=== PATIENT | female | born 1995 | race Two or more races ===

== ENCOUNTER 2017-06-23 13:22 | Outpatient (CLI) | payer OTHER | END 2017-06-23 14:10 | disposition home or self-care (01) | LOC: SONOGRAMA 13:22 | DX: R10.31 Right lower quadrant pain (principal) ==

== ENCOUNTER 2018-06-23 14:22 | Outpatient (CLI) | payer OTHER | END 2018-06-23 14:37 | disposition home or self-care (01) | LOC: SONOGRAMA 14:22 | DX: R42 Dizziness and giddiness (principal); R55 Syncope and collapse; N39.0 Urinary tract infection, site not specified ==

== ENCOUNTER 2018-06-27 08:14 | Outpatient (CLI) | payer OTHER | END 2018-06-27 08:24 | disposition home or self-care (01) | LOC: SONOGRAMA 08:14 | DX: R59.0 Localized enlarged lymph nodes (principal) ==

== ENCOUNTER 2018-07-01 16:36 | Outpatient (CLI) | payer OTHER | END 2018-07-01 19:00 | disposition home or self-care (01) | LOC: TOM 16:36 | DX: R59.0 Localized enlarged lymph nodes (principal) ==

== ENCOUNTER → 2020-05-21 | Outpatient (CLI) | payer OTHER | END | disposition home or self-care (01) | LOC: PRENATAL 13:00 | PROVIDERS: ATTEND Obstetrics & Gynecology Maternal & Fetal Medicine | DX: O35.3XX1 Maternal care for (suspected) damage to fetus from viral disease in mother, fetus 1 (principal); O35.0XX1 Maternal care for (suspected) central nervous system malformation in fetus, fetus 1; O98.512 Other viral diseases complicating pregnancy, second trimester; Z36.89 Encounter for other specified antenatal screening; Z3A.22 22 weeks gestation of pregnancy ==

== ENCOUNTER 2020-07-07 16:37 | Outpatient (CLI) | payer OTHER ==
[2020-07-07] MEDS ORDERED: BIOTIN1 M1 PO (16:44)
[2020-07-07] MEDS ORDERED: MAGNESIUM30 MG PO (16:44)
[2020-07-07] MEDS ORDERED: PRENATAL TABLE1 EAC1 PO (16:44)
[2020-07-07] MEDS ORDERED: PROBIOTIC1 EAC1 PO (16:45)
== END 2020-07-07 19:48 | disposition left against medical advice (07) ==
LOC: OBS/DEL 16:37
PROVIDERS: ATTEND Obstetrics & Gynecology
DX: O26.892 Other specified pregnancy related conditions, second trimester (principal); R10.2 Pelvic and perineal pain; Z20.828 Contact with and (suspected) exposure to other viral communicable diseases

== ENCOUNTER → 2022-09-20 | Emergency (ER) | payer OTHER ==
[~2022-09-20] MED LIST: BIOTIN1 M1 PO; MAGNESIUM30 MG PO; PRENATAL TABLE1 EAC1 PO; PROBIOTIC1 EAC1 PO
== END | disposition home or self-care (01) ==
LOC: ER 15:29
DX: Z53.21 Procedure and treatment not carried out due to patient leaving prior to being seen by health care provider (principal)

== ENCOUNTER → 2025-03-13 09:48 | Outpatient (CLI) | payer OTHER | END | disposition home or self-care (01) | LOC: PRENATAL 09:48 | PROVIDERS: ATTEND Obstetrics & Gynecology Maternal & Fetal Medicine | DX: O44.00 Complete placenta previa NOS or without hemorrhage, unspecified trimester (principal); Z3A.22 22 weeks gestation of pregnancy ==

== ENCOUNTER 2025-05-23 09:39 | Outpatient (CLI) | payer OTHER | END 2025-05-23 09:40 | disposition home or self-care (01) | LOC: PRENATAL 09:39 | PROVIDERS: ATTEND Obstetrics & Gynecology Maternal & Fetal Medicine | DX: O26.843 Uterine size-date discrepancy, third trimester (principal); O36.8130 Decreased fetal movements, third trimester, not applicable or unspecified; Z3A.33 33 weeks gestation of pregnancy ==